=== PATIENT | female | born 1970 | race Caucasian/White ===

== ENCOUNTER 2019-01-26 09:35 | Day surgery (SDC) | payer OTHER, SELFPAY ==
--- NOTE | 2019-01-18 12:23 | PCM.HP.BLA ---
History and Physical Date of Admission: 01/26/19 Pre-Op History and Physical ? HPI: The patient is a 48 year old female presenting for pre-operative visit. She is scheduled for?Hysteroscopy D&C?with possible polypr resection, for?AUB, thickened endometrium on?01/26/19. ??Procedure discussed along with risks, benefits and complications. ?Other alternatives discussed for management. Consent form signed??Yes.? PAST MEDICAL HISTORY PAST MEDICAL HISTORY Diagnosis Date ? BRCA negative 12/01/2018 ? Integrated [facility] with [facility] ? Cervicalgia ? ? Fibromyalgia ? ? Genital herpes ? ? Meningitis, unspecified(322.9) ? ? 4 years old ? Migraines ? ? ? PAST SURGICAL HISTORY PAST SURGICAL HISTORY Procedure Laterality Date ? PAST SURGICAL HISTORY OF ? 2009 ? L4-L5 back surgery ? PAST SURGICAL HISTORY OF ? ? ? RT arm DVT ? PAST SURGICAL HISTORY OF ? 11/01/2012 ? Cervical (Dr. Tompkins) ? TUBAL LIGATION, ? CURRENT MEDICATIONS Current Outpatient Medications Medication Sig Dispense Refill ? ergocalciferol 50,000 unit capsule (VITAMIN D2, DRISDOL) Vitamin D2 50,000 unit capsule ? ? ? valacyclovir HCl (VALTREX ORAL) Take by mouth. ? ? ? cyclobenzaprine (FLEXERIL) 10 mg tablet Take 10 mg by mouth three times daily as needed. ? ? ? pregabalin (LYRICA) 150 mg capsule Take 150 mg by mouth three times daily. ? ? ? DULoxetine (CYMBALTA) 30 mg capsule Take 60 mg by mouth once daily. ? ASPIRIN/ACETAMINOPHEN/CAFFEINE (EXCEDRIN MIGRAINE ORAL) Take ?by mouth. ? ? ? diphenhydrAMINE (BENADRYL) 25 mg capsule Take 25 mg by mouth every 6 hours as needed. ? ? ? ibuprofen (MOTRIN IB) 200 mg tablet Take 400 mg by mouth every 6 hours as needed. ? ? ? tranexamic acid (LYSTEDA) 650 mg tablet Take 2 tablets by mouth three times daily as needed (heavy menstrual bleeding) for up to 5 days. 30 tablet 11 ? No current facility-administered medications for this visit.? ? ALLERGIES:?Codeine ? PERSONAL HISTORY:? SOCIAL HISTORY Social History ? Tobacco Use ? Smoking status: Never Smoker ? Smokeless tobacco: Never Used Substance Use Topics ? Alcohol use: No ? Drug use: No ? FAMILY HISTORY:? FAMILY HISTORY FAMILY HISTORY Problem Relation Age of Onset ? Arthritis Mother ? ? Asthma Mother ? ? Headache Mother ? ? Breast Cancer Mother 53 ?negative BRCA ? Arthritis Father ? ? Diabetes Father ? ? Cancer Father ?CLL ? Fibromyalgia Sister ? ? Breast Cancer Maternal Grandmother ?dx 60s, 70s d. 92 spine mets ? Cancer Paternal Grandmother ?lung ? Cancer Paternal Grandfather ?lung ? Breast Cancer Other ? ? Breast Cancer Other ? ? Breast Cancer Other ? ? Breast Cancer Other ? ? Breast Cancer Other 23 ? REVIEW OF SYMPTOMS: GENERAL: denies fevers or chills ENDOCRINOLOGY: has not been on steroids Cardiology : denies palpitations or chest pain Respiratory: denies SOB or cough Hematology: denies history of prolonged bleeding or easy bruising or VTE Allergy: Denies history of personal or family history of allergy to anesthesia ? ? PHYSICAL EXAMINATION: ? VITALS:?Blood pressure 116/76, pulse 84, resp. rate 14, height 5' 5 (1.651 m), weight 202 lb (91.6 kg), last menstrual period 01/08/2019. ? GENERAL:??The patient is well nourished, well hydrated in no acute distress. ?, The patient is oriented to time, place, and person. NECK:?Supple. No lynphadenopathy, normal thyroid, no thyromegaly. LUNGS:?Clear to auscultation bilaterally. no wheezes, rhonchi or rales HEART:?Regular rate and rhythm, Normal heart sounds and No murmurs or gallops ? IMPRESSION:?AUB, EMB and endometrial hyperplasia on EMB ? PLAN:???The risks/benefits/alternatives and personal involved for the planned?hysteroscopy, dilation and curettage and possible polyp resection?were reviewed with the patient. Her questions were answered to her satisfaction and she desires to proceed. ?Consent was signed. ?I reviewed with her postop instructions and expectations. ? ? I have reviewed and updated past medical and surgical history, medications and allergies. This history and physical was completed in my office on 01/18/2019.
[2019-01-26] VITALS (7 sets, daily range): BP systolic 112–123; BP diastolic 65–73; PULSE 81–106; RESP 14–16; TEMP 36.2–36.8; O2SAT 97–100; BMI 33.7
[2019-01-26] MEDS: Ketorolac 30 MG/ML Syringe IV (07:00)
[2019-01-26 10:22] LABS: Internal QC Validated? YES +Cl - CLEAR BKGD; Pregnancy, Urine Negative Negative
[2019-01-26] MEDS: Acetaminophen 500 MG Tablet 1000 MG PO (10:30)
[2019-01-26] MEDS: Lactated Ringers 1,000 ML 30 ML IV (10:42)
--- NOTE | 2019-01-26 10:55 | EMB_PTH ---
PATIENT: АНДРЕЙ DURÁN LOC: [facility] [place] U#:[id number] AGE/SX: 48/F ROOM: RE01/26/[address]: Dr. Jazmin Mcnulty MD : [id number] BED: DIS: 01/26/2019 SPEC #: [id number] RECD: 01/26/19 14:34 STATUS: URIEL REQ #: [id number] POOJA: 01/26/19 10:[address]: Jazmin Mcnulty DEPT: SURGICAL PATHOLOGY RECD BY: Gabriel Curiel ENTERED: 01/27/19 11:01 SP TYPE: ENDOM BX/C DIANA DR: Rand Solorzano Tissues: Endometrium, NOS Procedures: Surgery Specimen Level IV HEADER OPERATION: Hysteroscopy, D & C PRE-OP DIAGNOSIS: Abnormal uterine bleeding TISSUE SUBMITTED: Endometrial curettings MICROSCOPIC DIAGNOSIS Endometrial curettings: Mildly disordered proliferative endometrium. SJ:lisa 01/30/19 MICROSCOPIC DESCRIPTION Slides are reviewed. GROSS DESCRIPTION Received in fixative is one container labeled with the patient's name and designated endometrial curettings. The specimen consists of multiple irregular fragments of santiago soft tissue mixed with blood clot that in aggregate measure 5 x 3 x 0.3 cm. The entire specimen is submitted in two cassettes. / SJ:rg 01/27/19 TC:5 CPT: 01573
--- NOTE | 2019-01-26 13:10 | PCM.DC.D&C ---
Discharge Diet: No Restrictions Discharge Activity: Return to Normal Activity, May Shower, May Take a Tub Bath - in 2 weeks. Allergies/Adverse Reactions: Allergies codeine Allergy (Verified 01/26/19 10:22) Shortness of breath Medications to take at Discharge Ibuprofen 200 mg PO Q6H PRN PRN 01/19/19 cycloBENZAPRine HCl [Flexeril] 10 mg PO TID PRN PRN 01/19/19 traMADol [Ultram] 50 mg PO Q6H PRN PRN 4 Days #12 tablet 01/26/19 The following prescriptions were given: traMADol [Ultram] 50 mg PO Q6H PRN PRN 4 Days #12 tablet PRN Reason: Pain Score 6-10/10 Transmission Status: Received by CINDY PETER[address] Primary Care Physician: Rand Solorzano [Primary Care Provider] - Test Results: Test results from this visit will be discussed in further detail at your follow-up appointment, if applicable. Please Follow Up With: Jazmin Mcnulty MD - [phone] When: as needed or 2-3 months to discuss bleeding
--- NOTE | 2019-01-26 13:35 | PCM.OPRPT ---
Report of Operation Date of Procedure: 01/26/19 Pre-Operative Diagnosis: Uterine bleeding, thickened endometrium Post-Operative Diagnosis: Same Surgery/Procedure Performed:: Hysteroscopy D&C with Symphion device Description of Surgical Findings:: Lush endometrium, bilateral velocity identified, thickened endometrium in the posterior wall consistent with possible polyp or fibroid, normal cervix and endocervical cavity, normal vagina transportation operations manager: None Type of Anesthesia:: MAC/Supplemental/Local Anesthesiologist: Terry Watts Special Medications: None Specimen's removed: Endometrial curettings Drains: none Estimated Blood Loss (mL): 15 Fluids Replaced: 1200 Description of Procedure: The patient was taken to the OR where she was prepped and draped in dorsal lithotomy position. The weighted speculum was placed in the vagina and the anterior lip of the cervix was grasped with a single-tooth tenaculum. A paracervical block was administered with [1% lidocaine with 1-100,000 epinephrine solution]. The cervix was dilated serially with Hegar dilators. The Symphion hysteroscope was placed into the uterine cavity and the above findings were noted. Bilateral tubal ostia [were] identified. The hysteroscope was removed. The Symphion device was readied and inserted. A visual dilation curettage was performed with the resection device. The tissue on the posterior uterine wall was somewhat thicker and consistent with a possible fibroid or polyp. Once the cavity was cleared of superficial endometrium, the device was removed from the cervix. The instruments were removed from the vagina. The specimen was handed off and sent to pathology. All sponge and needle counts were correct. Vaginal sweep was performed by me. The patient was awakened and taken to the recovery room in stable condition. Hysteroscopic fluid deficit was 350 cc of normal saline Grafts/Implants Used: none - Complications none - Admit VTE Documentation VTE Present on Admission: No VTE Mechan Device Prophylaxis: SCD's VTE Pharm Prophylaxis ordered?: No Reason prophylaxis not ordered:: Procedure Not Indicated
[2019-01-26] MEDS: HYDROcodone Bitartrate/Apap 5/325 Tablet PO (14:44)
== END 2019-01-26 15:01 | disposition home or self-care (01) ==
LOC: SDC 09:37 → AC 09:39
PROVIDERS: Family Provider Family Medicine; PCP Family Medicine; Referring Provider Obstetrics & Gynecology; Visit Provider Obstetrics & Gynecology
PROC: 0UB98ZZ Excision of Uterus, Via Natural or Artificial Opening Endoscopic (ICD-10-PCS; CPT 58558; principal; 2019-01-26 10:40)
DX: N93.9 Abnormal uterine and vaginal bleeding, unspecified (principal); R93.89 Abnormal findings on diagnostic imaging of other specified body structures; A60.00 Herpesviral infection of urogenital system, unspecified; M79.7 Fibromyalgia; Z88.5 Allergy status to narcotic agent; Z86.718 Personal history of other venous thrombosis and embolism; Z86.61 Personal history of infections of the central nervous system
CPT/HCPCS: 00952; 58558; 81025; 88305; J7120